=== PATIENT | female | born 1995 | race Caucasian/White ===

== ENCOUNTER 2016-08-11 22:10 | Inpatient (IN) ==
[2016-08-11] MEDS ORDERED: DINOPROSTONE 10 MG VAG.INSERT VAG ONE ×2 (23:10)
[2016-08-11] MEDS ORDERED: ONDANSETRON 4 MG/2 ML VIAL IV PRN (23:18)
[2016-08-11] MEDS ORDERED: ACETAMINOPHEN 325 MG TABLET PO PRN (23:18)
[2016-08-11] MEDS ORDERED: BUTORPHANOL 2 MG/ML VIAL IV PRN (23:18)
[2016-08-11 23:44] LABS: Basophils % 0.2 % (0.0-0.8); Eosinophils # 0.1 10*3/uL (0.0-0.87); Eosinophils % 0.7 % (0.00-10.9); Hematocrit 33.2 VOL% (35.7-47.0); Hemoglobin 11.3 GM/DL (12.0-16.0); Immature Granulocytes % 0.7 %; Immature Granulocytes Absolute 0.08 #; Lymphocytes # 2.2 10*3/uL (1.4-4.0); Lymphocytes % 17.9 % (21.3-54.2); Mean Corpuscular Hemoglobin 31 PG (27-34); Mean Corpuscular Volume 89.7 FL (87-102); Mean Platelet Volume 9.6 FL (9.6-12.0); Monocytes % 8.3 % (1.7-12.7); Neutrophils # 8.8 10*3/uL (1.4-7.4); Neutrophils % 72.2 % (38.7-73.9); Platelet Count 200 T/CUMM (130-400); Red Cell Distribution Width 12.9 % (9.3-17.3); White Blood Count 12.1 T/CUMM (4-12)
[2016-08-12] MEDS: LACTATED RINGERS 1,000 ML IV SCH ×2 (00:05→11:44)
[2016-08-12] MEDS ORDERED: OXYTOCIN/LR 20 UNIT/1,000 ML BAG IV SCH (07:30)
[2016-08-12] MEDS ORDERED: CITRIC ACID/SODIUM CITRATE 30 ML UDCUP PO ONE (11:08)
[2016-08-12] MEDS ORDERED: ePHEDrine 50 MG/ML AMP IV PRN (11:08)
[2016-08-12] MEDS ORDERED: LACTATED RINGERS 1,000 ML IV ONE (11:08)
[2016-08-12] MEDS ORDERED: FAMOTIDINE 20 MG/2 ML VIAL IV ONE (11:08)
[2016-08-12] MEDS ORDERED: diphenhydrAMINE 50 MG/1 ML VIAL IV PRN ×2 (11:09)
[2016-08-12] MEDS ORDERED: fentaNYL 2 MCG/ROPIV 0.2% EPID 150 ML EPIDURAL SCH (11:09)
[2016-08-12] MEDS ORDERED: hydrOXYzine HCL 25 MG/1 ML VIAL IM PRN (11:09)
[2016-08-12] MEDS ORDERED: PROMETHAZINE 25 MG/1 ML VIAL IM ONE (11:09)
[2016-08-12] MEDS ORDERED: ONDANSETRON 4 MG/2 ML VIAL ONE (11:38)
--- NOTE | 2016-08-12 12:47 | Event Note ---
pelvic /-2 . FHTs cat 1. epidural in place. pt comfortable
[2016-08-12 15:31] LABS: Apearance,Urine CLEAR (Clear); Bilirubin,Urine Negative (Negative); Blood, Urine Negative (Negative); Glucose,Urine (UA) Negative (Negative); Ketones,Urine 5 mg/dL (Negative); Nitrite,Urine Negative (Negative); Protein,Urine Negative; RBC,Urine <1 /HPF (0-4); Urine Color Straw (Yellow); Urine Specific Gravity 1.003 (1.001-1.035); Urine Urobilinogen < 2.0 EU/DL (0.2-1.0); WBC,Urine 1 /HPF (0-6)
[2016-08-12] MEDS ORDERED: ROPIVACAINE 0.5% 30 ML VIAL ONE (15:31)
[2016-08-12] MEDS ORDERED: fentaNYL 100 MCG/2 ML VIAL ONE ×2 (16:08→18:53)
[2016-08-12] MEDS ORDERED: ceFAZolin 2,000 MG in PREMIX 1 EACH IV ONE (17:20)
[2016-08-12] MEDS ORDERED: METHYLERGONOVINE 0.2 MG/1 ML AMP ONE (18:05)
--- NOTE | 2016-08-12 18:42 | Event Note ---
pelvic exam at 5:15 7-8/80/0 bloody show. now with cervical edema. proceed with a . R/B/A/C reviewed with the pt and with the FOB and they were amenable to the procedure
--- NOTE | 2016-08-12 18:46 | Operative Note ---
Date of procedure: 08/12/16 Pre-op diagnosis: IUP at 39 wks, CPD Post-op diagnosis: same Procedure: Procedure: Primary low transverse C section Findings infant male in the cephalic presentation Apgars were 8 and 9 weight was 8 lbs. 8 oz. normal uterus tubes and ovaries Procedure: The patient was consented for a primary risk benefits alternatives and complications were reviewed with the patient and the father of the baby. The procedure was as follows the patient was taken back to the operating room where epidural anesthesia was found to be adequate and then the patient was prepped and draped in the usual sterile fashion. A Pfannenstiel skin incision was made with the scalpel and carried out to the underlying fascia the fascia was incised in the midline and extended laterally with Silva scissors the superior aspect of the fascial incision was then dissected off the rectus muscle in the rectus muscle was then divided in the midline. The peritoneum was identified and entered sharply with Metzenbaum scissors extended superiorly and inferiorly with good visualization of the bladder. The bladder blade was then inserted the vesicouterine peritoneum identified and entered sharply with Metzenbaum scissors and extended laterally and the bladder flap was then created digitally. The bladder blade was reinserted. The lower uterine segment was incised with a scalpel and extended laterally the 's head was delivered atraumatically the cord was clamped and cut after the rest of the body was delivered and the was handed off to the waiting nursery nurse. The placenta was then removed manually the uterus cleared of all clots and debris with a clean dry sponge. The uterus was exteriorized and the uterine lining was cleared with a clean dry sponge again. The lower uterine segment was repaired using 0 Vicryl in a running fashion with a second imbricating layer to achieve excellent hemostasis. The uterus tubes and ovaries looked all within normal limits. The uterus was then reintroduced into the abdominal cavity copious irrigation was performed the gutters were cleared of all clots and debris. Surgicel was placed over the lower uterine incision and Interceed was placed over the anterior surface of the uterus to help prevent adhesions. The peritoneum was reapproximated using 3-0 Vicryl in a running fashion. The muscle was reapproximated using 3-0 Vicryl in an interrupted mattress fashion. The fascia was reapproximated using 0 Vicryl in a running fashion starting either angle and tying in the middle. The subcutaneous fat was re-approximated using 3-0 Vicryl in a running fashion. And the subcutaneous skin was reapproximated using 3-0 Monocryl in a subcuticular stitch fashion. Sponge lap and instrument counts were correct 3. Anesthesia: epidural Surgeon / Physician: Jena Knott Estimated blood loss: other (350) Urine output: 300 (blood tinged prior to start) Specimens: none sent Condition: stable Results - Labs CBC & BMP: 08/11/16 23:38 Discharge Plan - Discharge Medications No Action Vits #90/Iron Fum/FA [ Formula Tablet] 1 tablet PO DAILY - Follow Up or Referral - Forms/Instructions
[2016-08-12] MEDS ORDERED: MIDAZOLAM 2 MG/2 ML VIAL ONE (18:53)
[2016-08-12] MEDS ORDERED: MORPHINE 10 MG/10 ML VIAL ONE (18:53)
[2016-08-12] MEDS ORDERED: KETAMINE 500 MG/10 ML VIAL ONE (18:54)
[2016-08-12] MEDS ORDERED: OXYTOCIN/LR 20 UNIT/1,000 ML BAG IV ONE ×2 (19:44→20:53)
[2016-08-12] MEDS ORDERED: RHO(D) IMMUNE GLOBULIN 300 MCG SYRINGE IM ONE (20:53)
[2016-08-12] MEDS ORDERED: ACETAMINOPHEN 325 MG TABLET PO PRN (20:53)
[2016-08-12] MEDS ORDERED: ONDANSETRON 4 MG/2 ML VIAL IV PRN (20:53)
[2016-08-12] MEDS ORDERED: SIMETHICONE CHEW 80 MG TABLET PO PRN (20:53)
[2016-08-12] MEDS ORDERED: IBUPROFEN 800 MG TABLET PO PRN (20:53)
[2016-08-12] MEDS ORDERED: HYDROmorphone 2 MG/1 ML VIAL IV ONE (21:24)
[2016-08-12] MEDS ORDERED: SUGAMMADEX 200 MG/2 ML VIAL IV ONE (21:31)
[2016-08-12] MEDS: DOCUSATE SODIUM 100 MG CAPSULE PO SCH (23:02)
[2016-08-13 07:01] LABS: Basophils % 0.1 % (0.0-0.8); Eosinophils % 0.1 % (0.00-10.9); Hematocrit 28.8 VOL% (35.7-47.0); Hemoglobin 9.8 GM/DL (12.0-16.0); Immature Granulocytes % 0.8 %; Immature Granulocytes Absolute 0.16 #; Lymphocytes # 1.9 10*3/uL (1.4-4.0); Lymphocytes % 9.4 % (21.3-54.2); Mean Corpuscular Hemoglobin 30 PG (27-34); Mean Corpuscular Volume 88.9 FL (87-102); Mean Platelet Volume 10.2 FL (9.6-12.0); Monocytes # 1.9 10*3/uL (0.11-0.8); Monocytes % 9.1 % (1.7-12.7); Neutrophils # 16.4 10*3/uL (1.4-7.4); Neutrophils % 80.5 % (38.7-73.9); Platelet Count 183 T/CUMM (130-400); Red Blood Count 3.24 MC/CUMM (3.8-5.5); White Blood Count 20.3 T/CUMM (4-12)
--- NOTE | 2016-08-13 07:14 | Anesthesia Post-Op ---
Anesthesia Post OP - Post Ansesthetic Evaluation Patient seen in post op: Yes Resp: within normal limits CV: within normal limits Mental: within normal limits Temp: within normal limits [id number]: within normal limits Nausea and Vomiting: within normal limits Pain: within normal limits
[2016-08-13 07:28] LABS: Hypochromasia Slight; Platelet Estimate Normal
--- NOTE | 2016-08-13 09:27 | OB/GYN Progress Note ---
Assessment and Plan (1) Failure to progress in labor Status: Acute Assessment and plan: POD#1 s/p prim for FTP. The pt had a fever last night and her WBCs were high this morning. She has not had another fever. We will recheck her CBC in the morning. 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 She has not voided yet . Her pain and bleeding are under control. Exam LABORATORY ASSOCIATE - Constitutional Vitals: Vital Signs Temp Pulse Resp BP Pulse Ox 08/13/16 07:10 97.2 F L 105 H 18 105/62 96 08/13/16 06:00 18 08/13/16 04:00 99.3 F 105 H 18 110/66 98 08/13/16 00:00 98.6 F 99 H 18 121/61 98 08/12/16 23:00 98.3 F 110 H 20 128/60 98 08/12/16 22:00 98.9 F 105 H 20 126/69 98 08/12/16 21:30 105 H 20 135/71 98 08/12/16 21:09 99.3 F 08/12/16 21:00 99.3 F 97 H 20 114/61 98 08/12/16 20:53 102.1 F H 08/12/16 20:39 102.1 F H 08/12/16 20:00 115 H 18 126/71 08/12/16 16:00 99.2 F 113 H 22 132/69 General appearance: normal weight, no acute distress - Respiratory Respiratory exam: Absent: accessory muscle use - Cardiovascular Cardiovascular exam: Absent: regular rate and rhythm - GI/Abdominal GI/Abdominal exam: Present: other (dressing clean). Absent: guarding, rebound - Extremities Exam Extremities exam: Absent: calf tenderness - Neurological Exam Neurological exam: Present: alert, oriented X3 - Psychiatric Psychiatric exam: Present: normal affect, normal mood - Skin Skin exam: Present: normal color Results - Labs CBC & BMP: 08/13/16 06:24
[2016-08-13] MEDS: DOCUSATE SODIUM 100 MG CAPSULE PO SCH ×2 (09:30→21:20)
[2016-08-13] MEDS: MULTIVITAMIN (PRENATAL) TABLET PO SCH (09:30)
[2016-08-13] MEDS: MAGNESIUM HYDROXIDE SUSP 30 ML UDCUP PO PRN ×2 (09:31→21:20)
[2016-08-14 06:47] LABS: Basophils % 0.1 % (0.0-0.8); Eosinophils # 0.1 10*3/uL (0.0-0.87); Eosinophils % 0.7 % (0.00-10.9); Hematocrit 27.9 VOL% (35.7-47.0); Hemoglobin 9.4 GM/DL (12.0-16.0); Immature Granulocytes % 1.5 %; Immature Granulocytes Absolute 0.27 #; Lymphocytes # 2.5 10*3/uL (1.4-4.0); Lymphocytes % 13.3 % (21.3-54.2); Mean Corpuscular HGB Conc 33.7 GM/DL (32-36); Mean Corpuscular Hemoglobin 31 PG (27-34); Mean Corpuscular Volume 91.8 FL (87-102); Mean Platelet Volume 9.4 FL (9.6-12.0); Monocytes # 1.4 10*3/uL (0.11-0.8); Monocytes % 7.6 % (1.7-12.7); Neutrophils # 14.2 10*3/uL (1.4-7.4); Neutrophils % 76.8 % (38.7-73.9); Platelet Count 231 T/CUMM (130-400); Red Blood Count 3.04 MC/CUMM (3.8-5.5); Red Cell Distribution Width 12.9 % (9.3-17.3); White Blood Count 18.4 T/CUMM (4-12)
[2016-08-14] MEDS: DOCUSATE SODIUM 100 MG CAPSULE PO SCH ×2 (09:05→20:50)
[2016-08-14] MEDS: MULTIVITAMIN (PRENATAL) TABLET PO SCH (09:05)
[2016-08-14] MEDS: AMOXICILLIN/CLAV 875 MG TABLET PO SCH ×2 (09:53→20:50)
--- NOTE | 2016-08-14 12:17 | OB/GYN Progress Note ---
Assessment and Plan (1) Failure to progress in labor Status: Acute Assessment and plan: POD#2 s/p prim for FTP. The pt has had no further fever and her WBCs have come down some. The pt has no s/s of infection but we will start PO antibiotics bc WBCs are still elevated. Blood cultures are negative so far. 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 The patient desires her baby to be circumcised risks benefits alternatives and complications were reviewed with the patient and the baby's father and we will proceed to do it today. Exam ARTS EDUCATION TEACHER - Constitutional Vitals: Vital Signs Temp Pulse Resp BP Pulse Ox 08/14/16 07:27 97.9 F 86 18 107/66 98 08/14/16 04:00 98.1 F 83 20 113/75 99 08/14/16 00:00 99.7 F H 89 18 103/62 99 08/13/16 21:00 95 H 20 08/13/16 20:00 97.1 F L 95 H 20 117/69 97 08/13/16 16:21 97.1 F L 90 20 114/73 98 08/13/16 12:02 97.6 F 88 17 115/72 96 General appearance: normal weight, no acute distress - Respiratory Respiratory exam: Absent: accessory muscle use - Cardiovascular Cardiovascular exam: Present: regular rate and rhythm - GI/Abdominal GI/Abdominal exam: Present: soft. Absent: guarding, rebound - Extremities Exam Extremities exam: Absent: calf tenderness - Neurological Exam Neurological exam: Present: alert, oriented X3 - Psychiatric Psychiatric exam: Present: normal affect, normal mood Results - Labs CBC & BMP: 08/14/16 04:00
--- NOTE | 2016-08-14 12:17 | Discharge Summary ---
Hospital Course - Hospital Course Hospital Course: The pt was admitted for induction at 39 weeks . Due to CPD she ended up with a without complications. Her hospital course was uneventful other than a post-op fever on the day of delivery. She was started on antibiotics and she remained afebrile for the remainder of the hospital stay Diagnosis - Discharge Diagnosis (1) Failure to progress in labor Status: Acute Specialty Discharge - Follow Up or Referrals Follow up with: Jena Knott MD [Physician] - 1 Week Discharge Plan - Discharge Data Disposition: Disch To Home/Self Care Condition at Discharge: Stable Discharge Diet: advance to your usual diet Activity: no lifting Hygiene: may shower Weight Bearing at Discharge: full weight bearing Driving: not until seen by doctor Contact your physician if you experience:: fever over 101, Difficulty voiding, Redness or swelling, Nausea/Vomiting, Shortness of breath, Bleeding, pain uncontrolled by pain medications - Discharge Medications New HYDROcodone/ACETAMIN 5-325 [[place] 5-325] 1 - 2 tablet PO Q6H PRN #30 tablet PRN Reason: Abdominal Pain Amoxicillin/Clav Tab [Augmentin Tab] 875 mg PO Q12H #10 tablet No Action Vits #90/Iron Fum/FA [ Formula Tablet] 1 tablet PO DAILY - Follow Up or Referral - Forms/Instructions Instructions: Section (DC), Perineal Care (DC), Bleeding (DC) Exam - Constitutional Vitals: Period Temp Pulse Resp BP Sys/Power Pulse Ox Last 24 Hr 97.1 F-99.7 F 83-95 17-20 103-117/62-75 96-99 Discharge Results Procedures and tests throughout hospitalization: Pending Orders 08/12/16 21:46 Blood Culture Stat Labs on day of discharge: Labs from last 24 hours 08/14/16 04:00 WBC 18.4 H RBC 3.04 L Hgb 9.4 L Hct 27.9 L MCV 91.8 MCH 31 MCHC 33.7 RDW 12.9 Plt Count 231 D MPV 9.4 L Neut % (Auto) 76.8 H Lymph % (Auto) 13.3 L Ida % (Auto) 7.6 Eos % (Auto) 0.7 Baso % (Auto) 0.1 Neut # (Auto) 14.2 H Lymph # (Auto) 2.5 Ida # (Auto) 1.4 H Eos # (Auto) 0.1 Baso # (Auto) 0.0 Immature Gran % 1.5 Nucleated RBC % 0.0 Immature Gran # 0.27 Nucleated RBCs # 0.00 Preliminary micro results at discharge 08/12/16 21:46 Blood Culture - Preliminary Blood No growth at 1 day 08/12/16 21:46 Blood Culture - Preliminary Blood No growth at 1 day DS: Provider Date of admission: 08/11/16 22:10 Primary care physician: . No PCP Attending physician on admission: Jena Reynolds- Consults: 08/11/16 23:18 Consult to Anesthesiology [CONS] Routine Consulting Provider: Reason for Anesthesiology: Epidural Consult Comment: Epidural for pain managment 08/12/16 20:53 Consult to Assistant Professor Of Religion [CONS] Routine Consult Assistant Professor Of Religion: Breast Feeding Discharging clinician: Jena Reynolds- Expected date of discharge: 08/15/16
[2016-08-15 07:23] VITALS: BP 120/82
[2016-08-15] MEDS: AMOXICILLIN/CLAV 875 MG TABLET PO SCH (09:15)
[2016-08-15] MEDS: DOCUSATE SODIUM 100 MG CAPSULE PO SCH (09:17)
[2016-08-15] MEDS: MULTIVITAMIN (PRENATAL) TABLET PO SCH (09:17)
== END 2016-08-15 13:10 | disposition home or self-care (01) | DRG 765 ==
LOC: N.LD 22:10 → N.OB 08-12 21:00
PROVIDERS: ADMIT Obstetrics & Gynecology; ATTEND Obstetrics & Gynecology
PROC: LDCSECT (ICD-10-PCS; 2016-08-12 17:30)

== ENCOUNTER 2019-06-20 05:37 | Inpatient (IN) ==
[2019-06-20] MEDS ORDERED: ceFAZolin 2,000 MG in PREMIX 1 EACH IV ONE (05:56)
[2019-06-20] MEDS ORDERED: FAMOTIDINE 20 MG/2 ML VIAL IV ONE (05:56)
[2019-06-20] MEDS ORDERED: CITRIC ACID/SODIUM CITRATE 30 ML UDCUP PO ONE (05:56)
[2019-06-20] MEDS ORDERED: OXYTOCIN/LR 20 UNIT/1,000 ML BAG IV ONE ×2 (05:59→08:34)
[2019-06-20 06:17] LABS: Basophils % 0.3 % (0.0-0.8); Eosinophils # 0.2 10*3/uL (0.0-0.87); Eosinophils % 1.2 % (0.00-10.9); Hematocrit 34.9 VOL% (35.7-47.0); Hemoglobin 11.7 GM/DL (12.0-16.0); Immature Granulocytes % 2.4 %; Immature Granulocytes Absolute 0.34 #; Lymphocytes # 2.3 10*3/uL (1.4-4.0); Mean Corpuscular HGB Conc 33.5 GM/DL (32-36); Mean Corpuscular Volume 93.6 FL (87-102); Mean Platelet Volume 8.7 FL (9.6-12.0); Neutrophils % 72.1 % (38.7-73.9); Platelet Count 212 T/CUMM (130-400); Red Blood Count 3.73 MC/CUMM (3.8-5.5); Red Cell Distribution Width 12.6 % (9.3-17.3); White Blood Count 14.5 T/CUMM (4-12)
[2019-06-20] MEDS: LACTATED RINGERS 1,000 ML IV SCH ×2 (06:27→19:45)
[2019-06-20] MEDS ORDERED: BUPIVACAINE SPINAL 0.75% 2 ML AMP SPINAL ONE (06:39)
[2019-06-20] MEDS ORDERED: BUPIVACAINE 0.5% 50 ML VIAL ONE (06:39)
[2019-06-20 06:49] LABS: Bilirubin,Total 0.4 MG/DL (0.2-1.0); Calcium 8.6 MG/DL (8.5-10.1); Osmolality,Calculated 268.8 MOS/KG (273-304); Total Protein 6.8 G/DL (6.4-8.3)
[2019-06-20] MEDS ORDERED: LANOLIN 50% CREAM 0.3 OZ TUBE TOP PRN (08:34)
[2019-06-20] MEDS ORDERED: RHO(D) IMMUNE GLOBULIN 300 MCG SYRINGE IM ONE (08:34)
[2019-06-20] MEDS ORDERED: BENZOCAINE 20%/MENTHOL 0.5% SPRAY 56 GM CAN TOP PRN (08:34)
[2019-06-20] MEDS ORDERED: ONDANSETRON 4 MG/2 ML VIAL IV PRN (08:34)
[2019-06-20] MEDS ORDERED: WITCH HAZEL PADS 100/JAR TOP PRN (08:34)
[2019-06-20] MEDS ORDERED: HYDROCORTISONE 2.5% RECTAL CREAM 30 GM TUBE TOP PRN (08:34)
[2019-06-20] MEDS ORDERED: oxyCODONE/ACETAMINOPHEN 5-325 MG TABLET PO PRN (08:34)
[2019-06-20] MEDS ORDERED: BISACODYL 10 MG SUPP RECTAL PRN (08:34)
[2019-06-20] MEDS ORDERED: MEASLES/MUMPS/RUBELLA VACCINE 0.5 ML VIAL SUBCUT ONE (08:34)
[2019-06-20] MEDS ORDERED: DIPH/TET/ACEL PERT BOOSTER VACCINE 0.5 ML VIAL IM ONE (08:34)
[2019-06-20] MEDS ORDERED: ACETAMINOPHEN 325 MG TABLET PO PRN (08:34)
[2019-06-20 08:35] LABS: Apearance,Urine CLEAR (Clear); Bacteria,Urine Occasional /HPF (Few); Bilirubin,Urine Negative (Negative); Blood, Urine Negative (Negative); Glucose,Urine (UA) Negative (Negative); Ketones,Urine Negative (Negative); Mucus,Urine Occasional /LPF (Occasional); Nitrite,Urine Negative (Negative); Protein,Urine Negative; RBC,Urine 1 /HPF (0-4); Squamous Epithelial Cell,Urine Occasional /HPF (0-10); Urine Color Straw (Yellow); Urine Urobilinogen < 2.0 EU/DL (0.2-1.0)
[2019-06-20] MEDS ORDERED: MORPHINE 10 MG/10 ML VIAL ONE (08:54)
[2019-06-20] MEDS ORDERED: PHENYLEPHRINE 1 MG/10 ML SYRINGE IV ONE (08:54)
[2019-06-20] MEDS ORDERED: ePHEDrine 50 MG/ML AMP ONE (08:55)
[2019-06-20] MEDS: ceFAZolin 1,000 MG in SYRINGE 1 EACH IV SCH (16:27)
[2019-06-20] MEDS ORDERED: diphenhydrAMINE 50 MG/1 ML VIAL IV PRN (19:33)
[2019-06-20] MEDS: DOCUSATE SODIUM 100 MG CAPSULE PO SCH (20:50)
[2019-06-21] MEDS: ceFAZolin 1,000 MG in SYRINGE 1 EACH IV SCH (00:23)
[2019-06-21] MEDS: IBUPROFEN 800 MG TABLET PO PRN ×3 (00:32→18:29)
[2019-06-21 05:59] LABS: Basophils # 0.1 10*3/uL (0.0-0.2); Basophils % 0.3 % (0.0-0.8); Eosinophils # 0.1 10*3/uL (0.0-0.87); Eosinophils % 0.7 % (0.00-10.9); Hematocrit 28.7 VOL% (35.7-47.0); Hemoglobin 9.8 GM/DL (12.0-16.0); Immature Granulocytes % 1.1 %; Immature Granulocytes Absolute 0.21 #; Lymphocytes # 3.5 10*3/uL (1.4-4.0); Lymphocytes % 18.5 % (21.3-54.2); Mean Corpuscular HGB Conc 34.1 GM/DL (32-36); Mean Corpuscular Volume 91.1 FL (87-102); Mean Platelet Volume 9.1 FL (9.6-12.0); Monocytes % 9.9 % (1.7-12.7); Neutrophils % 69.5 % (38.7-73.9); Platelet Count 214 T/CUMM (130-400); Red Blood Count 3.15 MC/CUMM (3.8-5.5); Red Cell Distribution Width 12.5 % (9.3-17.3); White Blood Count 18.9 T/CUMM (4-12)
[2019-06-21] MEDS: oxyCODONE/ACETAMINOPHEN 5-325 MG TABLET PO PRN ×2 (09:33→18:30)
[2019-06-21] MEDS: DOCUSATE SODIUM 100 MG CAPSULE PO SCH ×2 (09:33→20:55)
[2019-06-22] MEDS: IBUPROFEN 800 MG TABLET PO PRN (03:57)
[2019-06-22] MEDS: oxyCODONE/ACETAMINOPHEN 5-325 MG TABLET PO PRN (05:34)
[2019-06-22 07:29] VITALS: BP 91/48
[2019-06-22] MEDS: DOCUSATE SODIUM 100 MG CAPSULE PO SCH (08:35)
== END 2019-06-22 12:15 | disposition home or self-care (01) | DRG 785 ==
LOC: N.LDOUT 05:37 → N.LD 05:45 → N.OB 11:49
PROVIDERS: ADMIT Specialist; ATTEND Specialist